=== PATIENT | female | born 1950 | race Caucasian/White ===

== ENCOUNTER 2023-02-15 06:59 | Day surgery (SDC) | payer OTHER ==
[2023-02-15] MEDS ORDERED: Ringers Lactate 1,000 ML IV ONE (07:29)
[2023-02-15] MEDS ORDERED: propofoL 200 MG/20 ML VIAL IV ONE (09:26)
[2023-02-15 10:02] VITALS: O2SAT 100
[2023-02-15 10:04] VITALS: BP 123/58; TEMP 98
--- NOTE | 2023-02-15 17:30 | EKG ---
Test Date: 2023-02-13 Test Time: 09:54:42 Stone Sandblaster: GRANT MEASUREMENT RESULTS: Intervals: Rate: 63 MS: 172 QRSD: 110 QT: 424 QTc: 433 Gravel Switch: P: 21 MS: 172 QRS: 7 T: 31 INTERPRETIVE STATEMENTS: Normal sinus rhythm Normal ECG No previous ECG available for comparison Electronically Signed On 02-15-23 17:23:38 ADULT LIVE IN CAREGIVER by Deion Maxwell
== END 2023-02-15 09:39 | disposition home or self-care (01) ==
LOC: OR 06:59
PROVIDERS: ATTEND Internal Medicine Gastroenterology
PROC: 0DJD8ZZ Inspection of Lower Intestinal Tract, Via Natural or Artificial Opening Endoscopic (ICD-10-PCS; principal; 2023-02-15 08:45)
DX: K92.1 Melena (principal); K64.8 Other hemorrhoids; K64.4 Residual hemorrhoidal skin tags; Q43.8 Other specified congenital malformations of intestine; Z86.010 Personal history of colon polyps
CPT/HCPCS: 93005; 45378; J2704; J7120

== ENCOUNTER 2024-06-25 14:32 | Inpatient (IN) | payer OTHER ==
--- OUTSIDE RECORDS SUMMARY | 2024-06-25 14:35 | XMS REPORT | Clinical Summary ---
Author Name Unknown Organization [facility] [place] Address [address] [place] [address] Care Team Providers Care Production Administrative Assistant Name Role Phone Toi Beltran MD Primary Care Provider Shawn Shetty MD Unavailable [phone] Heena Vidal MD Unavailable [phone] Allergies No known active allergies Medications atorvastatin (LIPITOR) 10 mg tablet Take 10 mg by mouth at bedtime. 04/03/1997 Active fluticasone (FLONASE) 50 mcg/spray nasal spray daily as needed. 04/03/1997 Active verapamil (VERELAN) 240 MG 24 hr capsule Take 240 mg by mouth daily. 04/03/1997 Active Synthroid 88 mcg tablet Take 1 tablet by mouth daily. 05/09/2020 Active Active Problems Problem Noted Date Diagnosed Date Melanoma in situ of back 06/25/2020 Multinodular goiter 06/09/2015 Surgical History Surgery Date Site/Laterality Comments TONSILLECTOMY APPENDECTOMY Medical History Medical History Date Comments Disorder of thyroid gland Multin odular goitre over 10 years Hyperlipidemia Melanoma in situ 1992 UPPER BACK Ventricular arrhythmia VENTRICUL AR TACHYCARDIA , WITH CARDIAC ABLATION 15 YEARS AGO Family History Medical History Relation Name Comments Coronary heart disease (CHD) Brother Hypertension Brother Thyroid cancer Brother Leukemia Daughter Thyroid cancer Daughter Coronary heart disease (CHD) Father Coronary heart disease (CHD) Mother Hypertension Mother Relation Name Status Comments Brother Alive Daughter Alive Father Mother Social History Tobacco Use Types Packs/Day Years Used Date Smoking Tobacco: Never Smokeless Tobacco: Never Alcohol Use Standard Drinks/Week Comments Yes 2 (1 standard drink = 0.6 oz pur e alcohol) Comments Unknown Sex and Gender Information Value Date Recorded Sex Assigned at Not on file 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 Gender Identity Not on file Sexual Orientation Not on file Obstetrics History Plan of Treatment Health Maintenance Due Date Last Done Comments Pneumococcal Vaccine: 50+ Years (1 of 1 - PCV) 002 COVID-19 Vaccine ( - 2023- season) 2023 Influenza Vaccine (#1) 2023 Insurance Care Teams Production Administrative Assistant Relationship Specialty Start Date End Date Toi Beltran MD [address] [place] [address] [phone] [email or web address] PCP - General 06/03/15 Shawn Shetty MD [address] [place] [phone] [email or web address] PCP - External Follow Up A 06/09/15 Heena Vidal MD [address] [place] [address] [phone] [email or web address] Physician Endocrine Surgery 06/09/15
[2024-06-25 17:12] LABS: Absolute Basophils 0.1 K/uL (0-0.5); Absolute Lymphocytes (CBC) 1.4 K/uL (0.7-4.9); Absolute Monocytes 0.6 K/uL (0.1-1.3); Absolute Neutrophil 4.3 K/uL (1.8-8.0); Basophils % 0.9 % (0-1.3); Eosinophils % 0.7 % (0-4.4); Hematocrit 42.7 % (36.0-45.0); Hemoglobin 14.5 g/dL (12.0-15.0); Lymphocytes % 21.9 % (15.3-44.8); MCH 32.5 pg (27.0-35.0); MCHC 33.9 g/dL (32.0-36.0); MCV 95.9 fL (80-100); MPV 8.7 fL (7.6-11.3); Neutrophils % 66.5 % (41.7-73.7); Nucleated Red Blood Cells % 0.1 % (0-0); Platelets 256 thou/uL (152-406); RBC Red Blood Cell Count 4.45 M/uL (3.86-4.86); Red Cell Distribution Width 13.9 % (12.1-15.2)
--- NOTE | 2024-06-25 17:23 | RAD REPORT ---
EXAMINATION: ONE VIEW CHEST XR CLINICAL INDICATION: Female, 73 years old.,CHEST PAIN TECHNIQUE: Frontal chest projection is submitted. Examination is limited by patient positioning and t echnique. COMPARISON: No prior exam. FINDINGS: The lungs are well inflated and clear. No pneumothorax or sizable effusion. The heart is normal in s ize. Mediastinal contours are unremarkable. IMPRESSION: No acute intrathoracic abnormalities.
[2024-06-25 17:28] LABS: Anion Gap 7.5 mEq/L (5.0-15.0); Potassium 3.5 mEq/L (3.5-5.1); Troponin High Sensitivity 4.3 pg/mL (<58.9)
[2024-06-25 17:38] LABS: PTT, Activated Partial Thromb 33.2 SECONDS (27.2-37.4); Protime INR 1.06
--- NOTE | 2024-06-25 18:23 | RAD REPORT ---
EXAMINATION: CTA HEAD CLINICAL INDICATION: Female, 73 years old. dizzines TECHNIQUE: Axial CT images were obtained through the head after intravenous contrast utilizing angiog raphic protocol with 3D post-processing (maximum intensity projection images, volume rendered images and/or shaded surface rendered images). One or more of the following dose reduction technique s were used: Automated exposure control, adjustment of the mA and/or kV according to patient size, and/or iterative reconstruction. Unless otherwise specified, incidental findings do not require dedic ated imaging follow-up. COMPARISON: No prior exam. FINDINGS: ICA: The petrous, cavernous, and supraclinoid segments of the bilateral internal carotid arteries are normal. CARTER: Anterior cerebral arteries are normal bilaterally. The anterior communicating artery is patent. MCA: Middle cerebral arteries are normal bilaterally. PREPARATION PLANT SUPERVISOR: Posterior cerebral arteries are normal bilaterally. Vertebrobasilar: The vertebral arteries are patent. The basilar artery is normal in appearance. 3D images confirm these findings. IMPRESSION: No large vessel occlusion or hemodynamically significant stenosis.
--- NOTE | 2024-06-25 18:24 | RAD REPORT ---
EXAM: CT Head Brain Wo Cont HISTORY: DIZZINESS COMPARISON: None TECHNIQUE: Multiple contiguous axial images were obtained for a CT of the brain without contrast. Sag ittal and coronal reformats were performed. One or more of the following dose reduction techniques were used: Automated exposure control, adjus tment of the mA and kV according to patient size, and iterative reconstruction. Unless otherwise specified, incidental findings do not require dedicated imaging follow-up. FINDINGS: No evidence of hydrocephalus, intracranial hemorrhage, or extra-axial fluid collection. Mild brain atrophy with mild periventricular and deep white matter chronic microvascular ischemic ch anges present. The calvarium is intact. The visualized paranasal sinuses and mastoid air cells are essentially clear . IMPRESSION: No evidence of acute intracranial abnormality.
--- NOTE | 2024-06-25 18:40 | RAD REPORT ---
EXAMINATION: CT Neck Angio CLINICAL INDICATION: Female, [address] [facility] dizziness Bed Name: 7 TECHNIQUE: Axial CT images were obtained from the aortic arch to the skull base after intravenous con trast utilizing angiographic protocol. Multiplanar reformats, as well as 3D post-processing (maximum intensity projection images, volume rendered images and/or shaded surface rendered images) w ere generated and reviewed. One or more of the following dose reduction techniques were used: Automated exposure control, adjustment of the mA and/or kV according to patient size, and/or iterativ e reconstruction. Unless otherwise specified, incidental findings do not require dedicated imaging follow-up. COMPARISON: No prior exam. FINDINGS: AORTA: The imaged aortic arch is normal. Normal three-vessel configuration of the arch. CCA: No artifact The common carotid arteries are patent and normal in caliber. ICA/ECA: Bilateral internal and external carotid arteries are patent. There is no significant interna l carotid artery stenosis. VERTEBRAL: The cervical vertebral arteries are patent to the skull base. Vertebral arteries are codom inant. SOFT TISSUE: No significant neck soft tissue abnormalities. The visualized lung apices are clear. 3D images confirm these findings. IMPRESSION: No significant flow abnormality of the neck vessels is identified. NASCET criteria used to quantify ICA stenosis, with the following grading scheme: Mild 0-49% stenosis Moderate 50-69% stenosis Severe 70-99% stenosis Reference: [place] Symptomatic Carotid Endarterectomy Trial Collaborators; Janine RUBIO, Heather WU, Kathy RB, et al. Beneficial effect of carotid endarterectomy in symptomatic patients with high-grade carotid stenosis. N Engl J Med. 1990Nov 15;325(7):445-53.
--- NOTE | 2024-06-25 18:59 | ER ---
Nurse's Notes [facility] Name: Sameera Mclean Age: 73 yrs Sex: Female : 1950 Arrival Date: 06/25/2024 Time: 14:32 Bed 15 Private MD: Diagnosis: Chest pain, unspecified;Dizziness and giddiness Presentation: 06/25 14:50 Chief complaint: Patient states: she had some episodes of vertigo last night and this me1 morning. Went to see Dr Neely this morning and she sent patient to ER due to EKG results. c/o LUQ pain. Vertigo has resolved. Coronavirus screen: At this time, the client does not indicate any symptoms associated with coronavirus-19. Ebola Screen: No symptoms or risks identified at this time. Initial Sepsis Screen: Does the patient meet any 2 criteria? No. Patient's initial sepsis screen is negative. Does the patient have a suspected source of infection? No. Patient's initial sepsis screen is negative. Risk Assessment: Do you want to hurt yourself or someone else? Patient reports no desire to harm self or others. Onset of symptoms was June 24, 2024. 14:50 Method Of Arrival: Ambulatory me1 14:50 Acuity: YEHUDA 3 me1 Triage Assessment: 15:02 Neuro: Level of Consciousness is awake, alert, obeys commands, Oriented to person, me1 place, time, situation, Appropriate for age. Neuro: Reports dizziness, last night and this am. Resolved. Cardiovascular: Patient's skin is warm and dry. Respiratory: Airway is patent Respiratory effort is even, unlabored, Respiratory pattern is regular, symmetrical. Historical: - Allergies: 14:59 No Known Allergies; me1 - PMHx: 14:59 Coronary atherosclerosis; me1 15:02 ventricular tachycardia; Hypercholesterolemia; retina detachment; me1 - PSHx: 15:02 Tonsillectomy; Appendectomy; oopherectomy; foot surgery; me1 - Immunization history:: Adult Immunizations up to date. - Infectious Disease History:: Denies. - Social history:: Smoking status: Patient denies any tobacco usage or history of. Screenin:27 [facility] ED Fall Risk Assessment (Adult) History of falling in the last 3 months, jb4 including since admission No falls in past 3 months (0 pts) Confusion or Disorientation No (0 pts) Intoxicated or Sedated No (0 pts) Impaired Gait No (0 pts) Mobility Assist Device Used No (0 pt) Altered Elimination No (0 pt) Score/Fall Risk Level 0 - 2 = Low Risk Oriented to surroundings, Maintained a safe environment. Abuse screen: Denies threats or abuse. Nutritional screening: No deficits noted. Tuberculosis screening: No symptoms or risk factors identified. Assessment: 16:45 General: Appears in no apparent distress. comfortable, Behavior is calm, cooperative, jb4 appropriate for age. Pain: Denies pain. Neuro: Level of Consciousness is awake, alert, obeys commands, Oriented to person, place, time, situation. Cardiovascular: Patient's skin is warm and dry. Respiratory: Airway is patent Respiratory effort is even, unlabored, Respiratory pattern is regular, symmetrical. Derm: Skin is intact, Skin is pink, warm \T\ dry. 18:00 Reassessment: Patient appears in no apparent distress at this time. Patient and/or jb4 family updated on plan of care and expected duration. Pain level reassessed. Patient is alert, oriented x 3, equal unlabored respirations, skin warm/dry/pink. 19:00 Reassessment: Patient appears in no apparent distress at this time. Patient and/or jb4 family updated on plan of care and expected duration. Pain level reassessed. Patient is alert, oriented x 3, equal unlabored respirations, skin warm/dry/pink. 20:00 Reassessment: Patient appears in no apparent distress at this time. Patient and/or jb4 family updated on plan of care and expected duration. Pain level reassessed. Patient is alert, oriented x 3, equal unlabored respirations, skin warm/dry/pink. Vital Signs: 14:50 BP 210 / 114; Pulse 77; Resp 20; Temp 98.5; Pulse Ox 99% ; Pain 0/10; me1 18:27 BP 188 / 88; Pulse 55; Resp 16; Pulse Ox 97% on R/A; jb4 19:30 BP 191 / 92; Pulse 61; Resp 16; Pulse Ox 98% on R/A; jb4 21:00 BP 147 / 63; Pulse 70; Resp 16; Pulse Ox 97% on R/A; jb4 22:00 BP 155 / 68; Pulse 71; Resp 20; Pulse Ox 99% on R/A; jb4 14:50 Pain Scale: Adult wv1 ED Course: 14:34 Patient arrived in ED. im 14:40 Jean Nicolas MD is Attending Physician. ec2 14:59 Triage completed. me1 15:02 Arm band placed on Patient placed in waiting room. me1 15:09 EKG done, by ED staff, reviewed by Jean Nicolas MD. me1 15:57 Radiology exam delayed due to lab results not completed at this time. (BUN/Creatinine) jc4 IV insertion attempt and/or patient not having appropriate IV at this time. 16:53 XRAY Chest (1 view) In Process Unspecified. EDMS 16:56 Radiology exam delayed due to lab results not completed at this time. (BUN/Creatinine) nj IV insertion attempt and/or patient not having appropriate IV at this time. 17:07 Ptt, Activated Sent. bc6 17:07 PT-INR Sent. bc6 17:07 Basic Metabolic Panel Sent. bc6 17:07 CBC with Diff Sent. bc6 17:07 Troponin HS Sent. bc6 17:07 Initial lab(s) drawn, by wv, sent to lab. Inserted saline lock: 20 gauge in right bc6 antecubital area, using aseptic technique. Blood collected. Flushed with 10 mL NS. 17:49 CT Head Angio In Process Unspecified. EDMS 17:49 CT Head Brain wo Cont In Process Unspecified. EDMS 17:49 CT Neck Angio In Process Unspecified. EDMS 18:27 Patient has correct armband on for positive identification. Bed in low position. Call jb4 light in reach. Side rails up X 1. Provided Education on: plan of care. 18:27 No provider procedures requiring assistance completed. jb4 18:58 Prince Ordonez MD is Hospitalizing Provider. ec2 19:59 Delmar Ribeiro, RN is Primary Nurse. jb4 06/26 08:01 Primary Nurse role handed off by Delmar Ribeiro, RN bd 08:58 Patient admitted, IV remains in place. ap3 Administered Medications: 06/25 20:41 Drug: hydrALAZINE IVP 10 mg IVP once Route: IVP; Site: right forearm; jb4 21:00 Follow up: Response: No adverse reaction; Blood pressure is lowered rg5 Medication: 18:27 VIS not applicable for this client. jb4 Outcome: 18:58 Decision to Hospitalize by Provider. ec2 06/26 08:58 Admitted to Tele ap3 Condition: good Discharge instructions given to patient, Instructed on the need for admit, 08:58 Patient left the ED. ap3 Signatures: Dispatcher [employer] EDMS Marlee Boss James, SHERMAN RN jb4 Ric Macdonald Amanda, RN RN ap3 Anila Case 6 Gill Cohn Michelle, RN RN me1 Jean Nicolas MD MD ec2 Tim Tabares RN RN rg5 Kwesi Nieto 4
--- NOTE | 2024-06-25 18:59 | EDPHYS ---
Physician Documentation [facility] Name: Sameera Mclean Age: 73 yrs Sex: Female : 1950 Arrival Date: 06/25/2024 Time: 14:32 Bed 15 Private MD: ED Physician Jean Nicolas HPI: 06/25 15:05 This 73 yrs old Female presents to ER via Ambulatory with complaints of ec2 Abnormal Lab Results - EKG. 15:05 Patient arrives today for evaluation of dizziness as well as chest pain. Patient ec2 reports intermittent left-sided chest pain ongoing for unclear timeframe. Reports that she is also noted some dizziness which she describes as vertigo with a concerning sensation which she no longer actively has. Reports a history of CAD, hyperlipidemia, hypertension.. Historical: - Allergies: 14:59 No Known Allergies; me1 - PMHx: 14:59 Coronary atherosclerosis; me1 15:02 ventricular tachycardia; Hypercholesterolemia; retina detachment; me1 - PSHx: 15:02 Tonsillectomy; Appendectomy; oopherectomy; foot surgery; me1 - Immunization history:: Adult Immunizations up to date. - Infectious Disease History:: Denies. - Social history:: Smoking status: Patient denies any tobacco usage or history of. ROS: 15:05 Constitutional: as per hpi ec2 Exam: 15:05 Constitutional: GEN: NAD Head: atraumatic Eyes: EOMI Ears: External ears are ec2 normal. CV: regular rate LUNGS: no respiratory distress ABD: non-distended, soft, nontender, not guarding, not rigid SKIN: no evidence of rashes MSK: no evidence of trauma. Neuro: Cranial nerves II through XII intact, strength intact all 4 extremities, normal [id number]. Vital Signs: 14:50 BP 210 / 114; Pulse 77; Resp 20; Temp 98.5; Pulse Ox 99% ; Pain 0/10; me1 18:27 BP 188 / 88; Pulse 55; Resp 16; Pulse Ox 97% on R/A; jb4 19:30 BP 191 / 92; Pulse 61; Resp 16; Pulse Ox 98% on R/A; jb4 21:00 BP 147 / 63; Pulse 70; Resp 16; Pulse Ox 97% on R/A; jb4 22:00 BP 155 / 68; Pulse 71; Resp 20; Pulse Ox 99% on R/A; jb4 14:50 Pain Scale: Adult me1 MDM: 14:47 Medical Screening Exam initiated ec2 15:06 Data reviewed: vital signs, nurses notes. ED course: Patient arrives today for ec2 evaluation of dizziness and left-sided chest pain with which she has no active symptoms. Will obtain a cardiac workup as well as a CT scan of the head and CT angio head and neck. DDx include processes such as ACS, stroke, TIA. 15:12 ED course: EKG independently reviewed and interpreted by me, shows normal sinus rhythm, ec2 rate of 63, no acute ST segment elevations, intervals are nonactionable.. 17:57 ED course: Metabolic profile reassuring, CBC reassuring, troponin within normal ranges. ec2 Chest x-ray shows no acute intrathoracic process. Pending CT imaging.. 18:58 ED course: Patient with reassuring cardiac workup, CT scan of the head, CT angio of the ec2 head and neck with no acute process identified. Will admit for further stroke workup, discussed the case with hospitalist will admit primarily.. 06/25 14:41 Order name: Basic Metabolic Panel; Complete Time: 17:57 ec2 06/25 14:41 Order name: CBC with Diff; Complete Time: 17:57 ec2 06/25 14:41 Order name: Troponin HS; Complete Time: 17:57 ec2 06/25 14:41 Order name: PT-INR; Complete Time: 17:57 ec2 06/25 14:41 Order name: Ptt, Activated; Complete Time: 17:57 ec2 06/25 19:15 Order name: UAM ec2 06/25 19:34 Order name: Urinalysis w/ reflexes EDSC 06/25 14:41 Order name: XRAY Chest (1 view); Complete Time: 17:57 ec2 06/25 15:03 Order name: CT Head Angio; Complete Time: 18:36 ec2 06/25 15:03 Order name: CT Head Brain wo Cont; Complete Time: 18:36 ec2 06/25 15:03 Order name: CT Neck Angio; Complete Time: 18:47 ec2 06/25 19:39 Order name: Echo with Doppler EDSC 06/25 19:39 Order name: Brain Wo Cont EDSC 06/25 14:41 Order name: EKG; Complete Time: 14:42 ec2 06/25 19:34 Order name: Physical Therapy Consult [facility] 06/25 14:41 Order name: Cardiac monitoring; Complete Time: 17:55 ec2 06/25 14:41 Order name: EKG - Nurse/Tech; Complete Time: 15:09 ec2 06/25 14:41 Order name: IV Saline Lock; Complete Time: 17:07 ec2 06/25 14:41 Order name: Labs collected and sent; Complete Time: 17:07 ec2 06/25 14:41 Order name: O2 Per Protocol; Complete Time: 17:55 ec2 06/25 14:41 Order name: O2 Sat Monitoring; Complete Time: 17:55 ec2 Administered Medications: 20:41 Drug: hydrALAZINE IVP 10 mg IVP once Route: IVP; Site: right forearm; jb4 21:00 Follow up: Response: No adverse reaction; Blood pressure is lowered rg5 Disposition Summary: 06/25/24 18:58 Hospitalization Ordered Notes: Hospitalization Status: Inpatient Admission ec2 Provider: Prince José Luis ec2 Condition: Stable ec2 Problem: new ec2 Symptoms: are unchanged ec2 Bed/Room Type: Standard ec2 Location: Telemetry/MedSurg (observation)(06/26/24 06:40) Room Assignment: 428(06/26/24 06:40) Diagnosis - Chest pain, unspecified ec2 - Dizziness and giddiness ec2 Forms: - Medication Reconciliation Form ec2 - SBAR form ec2 - Leadership Thank You Letter ec2 Signatures: Dispatcher [employer] EDJolly Le RN RN kl Delmar Ribeiro RN RN jb4 Jaclyn Carmona RN RN me1 Jean Nicolas MD MD ec2 Tim Tabares RN rg5 Corrections: (The following items were deleted from the chart) 14:42 14:41 BASIC METABOLIC PANEL+C.LAB.BRZ ordered. EDMS EDMS 14:42 14:41 CBC+H.LAB.BRZ ordered. EDMS EDMS 14:42 14:41 Troponin High Sensitivity+C.LAB.BRZ ordered. EDMS EDMS 14:42 14:41 PROTIME (+INR)+COAG.LAB.BRZ ordered. EDMS EDMS 14:42 14:41 PTT, ACTIVATED+COAG.LAB.BRZ ordered. EDMS EDMS 15:04 15:04 Head Brain Wo Cont+CT.RAD.BRZ ordered. EDMS EDMS 15:04 15:04 Neck Angio+CT.RAD.BRZ ordered. EDMS EDMS 23:46 18:58 Telemetry/MedSurg (Inpatient) [facility] 23:46 18:58 [facility] 06/26 06:40 06/25 23:46 [facility] ER [facility] 06/26 06:40 06/25 23:46 [facility]
--- NOTE | 2024-06-25 19:37 | P.HP ---
Certification for Inpatient Patient admitted to: Observation With expected LOS: <2 Midnights Practitioner: I am a practitioner with admitting privileges, knowledge of patient current condition, hospital course, and medical plan of care. Services: Services provided to patient in accordance with Admission requirements found in Title 42 Section 412.3 of the Code of Federal Regulations Patient History Date of Service: 06/25/24 Reason for admission: Vertigo History of Present Illness: Patient is a 73-year-old female with a past medical history of ventricular tachycardia, hypothyroidism and hyperlipidemia. She presented to the ER accompanied by with complaints of acute vertigo. Patient states that she woke up in the middle of the night to go to the bathroom and after returning in bed and lying down, she started experiencing vertiginous symptoms. She is describing them as the room spinning around. The morning of the following day, as she was trying to do some exercise, she got up and went into the exercise floor and experienced the same symptoms as described above. Associated symptoms include extreme nausea. Patient denies any recent flulike illness, vomiting, fever or cough. CT head, CTA head and neck were unremarkable in the ER. She is being admitted for brain MRI. During evaluation the ER, physical exam was benign and nonfocal. Allergies No Known Allergies Allergy (Verified 02/13/23 08:42) Home Medications: Atorvastatin Calcium [Lipitor] 20 mg PO BEDTIME 02/13/23 Bromfenac Sodium 1.7 ml LEFT EYE DAILY 02/13/23 Levothyroxine [Synthroid] 88 mcg PO [id number] 02/13/23 Verapamil HCl [Verapamil ER] 240 mg PO DAILY 02/13/23 Physical Examination - Physical Exam General: Alert, In no apparent distress HEENT: Atraumatic, Normocephalic Cardiovascular: No edema, Normal pulses, Regular rate/rhythm, Normal S1 S2 Neurological: Normal speech - Studies Laboratory Data (last 24 hrs) 06/25/24 06/25/24 06/25/24 17:05 17:05 17:05 WBC 6.40 Hgb 14.5 Hct 42.7 Plt Count 256 PT 12.0 INR 1.06 APTT 33.2 Sodium 139 Potassium 3.5 BUN 11 Creatinine 0.63 Glucose 111 H Assessment and Plan - Problems (Diagnosis) (1) Vertigo Current Visit: Yes Status: Acute (2) Ventricular tachycardia Current Visit: Yes Status: Acute (3) Hypothyroidism Current Visit: Yes Status: Acute (4) Hyperlipidemia Current Visit: Yes Status: Acute - Plan Assessment Patient is a 73-year-old female who is being admitted for CVA workup after she presented with dizziness manifested by vertigo. Workup in the ER included a CT head, CTA head and neck, all of which returned unremarkable. Vertigo Ventricular tachycardia Hypothyroidism Hyperlipidemia Plan: Will admit under observation with telemetry Will obtain the brain MRI and 2D echo Physical therapy in the morning Check for thyroid function test Monitor for arrhythmia Resume rest of home medication upon reconciliation: She is supposed to be on verapamil, levothyroxine and atorvastatin - Advance Directives Does patient have a Living Will: No Does patient have a Durable POA for Healthcare: No
[2024-06-25 19:59] LABS: Specific Gravity 1.005 (1.005-1.030); Sqamous Epithelial <5 /HPF (None Seen); Urine Bacteria None Seen /HPF (<20); Urine Bilirubin NEGATIVE (Negative); Urine Blood Negative (Negative); Urine Clarity Clear (Clear); Urine Color Colorless (Yellow); Urine Crystals Unidentified Few /HPF (None Seen); Urine Culture Reflex Order NOT NEEDED; Urine Glucose NEGATIVE (Negative); Urine Ketones NEGATIVE (Negative); Urine Micro Reflex YN NO BILL MICROSCOPIC; Urine Nitrite NEGATIVE (Negative); Urine Protein NEGATIVE (Negative); Urine RBC <5 /HPF (None Seen); Urine Urobilinogen Normal (Normal); Urine WBC <5 /HPF (<5); Urine pH 6.5 (5.0-7.0)
[2024-06-25] MEDS ORDERED: HYDRALAZINE HCL 20 MG/ML VIAL ONE (20:39)
[2024-06-25] MEDS ORDERED: NA CHLORIDE 0.9% 1,000 ML ONE (22:23)
[2024-06-25] MEDS: NA CHLORIDE 0.9% 1,000 ML IV SCH (22:30)
[2024-06-25 22:46] VITALS: BMI 29.9
[2024-06-26] MEDS ORDERED: ACETAMINOPHEN 325 MG TABLET ONE (03:03)
[2024-06-26] MEDS: ACETAMINOPHEN 325 MG TABLET PO PRN (03:07)
[2024-06-26] MEDS: PNEUMOCOCCAL VACCINE 0.5 ML IMVAC ONE (08:00)
[2024-06-26] MEDS ORDERED: ONDANSETRON 4 MG/2 ML VIAL ONE (08:44)
[2024-06-26] MEDS: ONDANSETRON 4 MG/2 ML VIAL IV PRN (08:48)
[2024-06-26] MEDS: NA CHLORIDE 0.9% 1,000 ML IV SCH (10:04)
[2024-06-26] MEDS: ENOXAPARIN 40 MG/0.4 ML SQ SCH (10:04)
[2024-06-26] MEDS: OXYCODONE HCL 5 MG TAB PO PRN (11:00)
[2024-06-26] MEDS: HYDRALAZINE HCL 20 MG/ML VIAL IV PRN (11:14)
--- NOTE | 2024-06-26 15:17 | P.PN ---
Subjective Date of Service: 06/26/24 Chief Complaint: Vertigo Subjective: No chest pain or shortness of breath. Complaining of on and off nausea and vertigo. No abdominal pain. No obvious bleeding. Looks comfortable in the bed. Objective: General appearance: Alert and comfortable CVS: Normal S1 and S2 Lungs: Clear to auscultation bilaterally Abdomen: Soft, bowel sounds present, no tenderness Extremities: No lower extremity edema Physical Examination - Vital Signs Temperature: 97.7 F Blood Pressure: 192/82 Pulse: 61 Respirations: 20 Pulse Ox (%): 98 - Studies Laboratory Data (last 24 hrs) 06/25/24 06/25/24 06/25/24 17:05 17:05 17:05 WBC 6.40 Hgb 14.5 Hct 42.7 Plt Count 256 PT 12.0 INR 1.06 APTT 33.2 Sodium 139 Potassium 3.5 BUN 11 Creatinine 0.63 Glucose 111 H Assessment And Plan - Plan Patient is a 73-year-old female who is being admitted for CVA workup after she presented with dizziness manifested by vertigo. Workup in the ER included a CT head, CTA head and neck, all of which returned unremarkable. 1. Vertigo: CT head and CTA head and neck negative, MRI pending, neurology consult requested. 2. Ventricular tachycardia: Echo pending, cardiology consult requested. 3. Hypothyroidism: Resume home levothyroxine. 4. Hyperlipidemia: Continue statin. 5. History of cardiac arrhythmia: On verapamil, resume soon. Discussed with patient and family at bedside, answered all questions.
--- NOTE | 2024-06-26 19:27 | RAD REPORT ---
EXAMINATION: MRI BRAIN WITHOUT CONTRAST CLINICAL INDICATION: Headache TECHNIQUE: Multiplanar multisequence MR images of the brain were obtained without intravenous contras t. Unless otherwise specified, incidental findings do not require dedicated imaging follow-up. COMPARISON: June 25, 2024 FINDINGS: Mild to moderate abnormal signal within periventricular, deep and subcortical white matter probably i schemic changes secondary to small vessel disease. Diffusion weighted/ADC mapping does not demonstrate evidence of an acute infarction. Ventricles are normal caliber. No extra-axial fluid collection. No fluid within the sinuses/mastoid seen. Mucous retention cyst right maxillary sinus. IMPRESSION: No acute intracranial abnormalities displayed
[2024-06-26] MEDS: ATORVASTATIN 40 MG TAB PO SCH (20:01)
[2024-06-27] MEDS: LEVOTHYROXINE SOD 0.088 MG TAB PO SCH (05:38)
[2024-06-27 07:22] LABS: Absolute Lymphocytes (CBC) 1.7 K/uL (0.7-4.9); Absolute Monocytes 1.3 K/uL (0.1-1.3); Absolute Neutrophil 7.7 K/uL (1.8-8.0); Basophils % 0.4 % (0-1.3); Eosinophils % 0.1 % (0-4.4); Hematocrit 39.5 % (36.0-45.0); Hemoglobin 13.8 g/dL (12.0-15.0); Lymphocytes % 15.3 % (15.3-44.8); MCH 32.6 pg (27.0-35.0); MCHC 34.9 g/dL (32.0-36.0); MCV 93.6 fL (80-100); MPV 9.3 fL (7.6-11.3); Monocytes % 12.4 % (3.3-12.3); Neutrophils % 71.8 % (41.7-73.7); Platelets 251 thou/uL (152-406); RBC Red Blood Cell Count 4.23 M/uL (3.86-4.86); Red Cell Distribution Width 13.8 % (12.1-15.2)
[2024-06-27 07:39] LABS: Anion Gap 9.3 mEq/L (5.0-15.0); Magnesium 2.2 mg/dL (1.6-2.4); Phosphorus 2.9 mg/dL (2.5-4.9); Potassium 3.3 mEq/L (3.5-5.1)
[2024-06-27 08:26] VITALS: BP 150/76; TEMP 98.1
--- NOTE | 2024-06-27 08:34 | ECHO ---
HEIGHT: 5 ft 5 in WEIGHT: 180 lb 0 oz DATE OF STUDY: 06/26/[address]: Prince Madeline Ordonez MD 2-DIMENSIONAL: YES M.MODE: YES DOPPLER: YES COLOR FLOW: YES TDS: PORTABLE: YES DEFINITY: BUBBLE STUDY: DIAGNOSIS: VERTIGO CARDIAC HISTORY: CATHERIZATION: NO SURGERY: NO PROSTHETIC VALVE: NO PACEMAKER: NO MEASUREMENTS (cm) DIASTOLIC (NORMALS) SYSTOLIC (NORMALS) IVSd 1.0 (0.6-1.2) LA Diam 2.9 (1.9-4.0) LVEF 60-65% LVIDd 4.6 (3.5-5.7) LVIDs 2.9 (2.0-3.5) %FS 37% LVPWd 1.1 (0.6-1.2) Ao Diam 2.8 (2.0-3.7) 2 DIMENSIONAL ASSESSMENT: RIGHT ATRIUM: NORMAL LEFT ATRIUM: NORMAL RIGHT VENTRICLE: NORMAL LEFT VENTRICLE: NORMAL TRICUSPID VALVE: NORMAL MITRAL VALVE: NORMAL PULMONIC VALVE: NORMAL AORTIC VALVE: NORMAL PERICARDIAL EFFUSION: NONE AORTIC ROOT: NORMAL LEFT VENTRICULAR WALL MOTION: NORMAL DOPPLER/COLOR FLOW: NORMAL COMMENTS: 1. NORMAL LEFT VENTRICULAR SYSTOLIC FUNCTION, EJECTION FRACTION 60-65%, NORMAL WALL MOTION 2. NORMAL DIASTOLIC FUNCTION TECHNOLOGIST: HEMA MCMANUS
--- NOTE | 2024-06-27 08:42 | EKG ---
Test Date: 2024-06-25 Test Time: 15:08:07 Doll Surgeon: MEASUREMENT RESULTS: Intervals: Rate: 63 FL: 152 QRSD: 84 QT: 402 QTc: 411 [place]: P: 22 FL: 152 QRS: 7 T: 53 INTERPRETIVE STATEMENTS: Normal sinus rhythm Normal ECG Compared to ECG 02/13/2023 09:54:42 No significant changes Electronically Signed On 06-27-24 08:37:26 CDT by Santhosh Bearden
[2024-06-27] MEDS: VERAPAMIL SR 240 MG TABLET PO SCH (09:25)
[2024-06-27] MEDS: POTASSIUM CL SA 10 MEQ TAB PO ONE (09:25)
[2024-06-27 09:56] VITALS: O2SAT 95
--- NOTE | 2024-06-27 10:42 | P.DS ---
Admission Date: 06/27/24 Discharge Date: 06/27/24 Disposition: DC HOME/HOME HEALTH CARE Discharge Condition: GOOD Reason for Admission: Vertigo Hospital Course: Patient is a 73-year-old female who is being admitted for CVA workup after she presented with dizziness manifested by vertigo. Workup in the ER included a CT head, CTA head and neck, all of which returned unremarkable. 1. Vertigo: resolved. -CT head and CTA head and neck negative - MRI neg 2. Ventricular tachycardia: Echo normal, cardiology consult requested, rec verapamil and o/p f/u 3. Hypothyroidism: home levothyroxine. 4. Hyperlipidemia: Continue statin. 5. History of cardiac arrhythmia: On verapamil 73-year-old patient admitted with vertigo, she was admitted for stroke rule out, MRI negative for stroke, physical therapy did work with her, her vertigo symptoms resolved, cardiology was consulted due to history of arrythmia, she had an echocardiogram that was pretty normal, they recommended to continue verapamil and follow-up as an outpatient, when I see the patient today she is doing well without any acute problems, no further vertigo, she feels ready to go home, otherwise no other acute issues going on so I am planning to discharge her to go home and follow-up with PCP and cardiology. Subjective: No chest pain or shortness of breath. No nausea or vomiting. No abdominal pain. No obvious bleeding. Looks comfortable in the bed. No vertigo. Objective: General appearance: Alert and comfortable CVS: Normal S1 and S2 Lungs: Clear to auscultation bilaterally Abdomen: Soft, bowel sounds present, no tenderness Extremities: No lower extremity edema [employer]PER[employer]OR [employer] COMPLAINT SERVICE: Moves all 4 extremities, no facial weakness. Vital Signs/Physical Exam: Temp Pulse Resp BP Pulse Ox 98.1 F 71 20 150/76 H 95 06/27/24 08:00 06/27/24 09:25 06/27/24 08:00 06/27/24 09:25 06/27/24 08:00 Laboratory Data at Discharge: WBC 10.80 thou/uL (4.3-10.9) 06/27/24 06:52 Hgb 13.8 g/dL (12.0-15.0) 06/27/24 06:52 Hct 39.5 % (36.0-45.0) 06/27/24 06:52 Plt Count 251 thou/uL (152-406) 06/27/24 06:52 PT 12.0 SECONDS (10-13.0) 06/25/24 17:05 INR 1.06 06/25/24 17:05 APTT 33.2 SECONDS (27.2-37.4) 06/25/24 17:05 Sodium 139 mEq/L (136-145) 06/27/24 06:52 Potassium 3.3 mEq/L (3.5-5.1) L 06/27/24 06:52 BUN 9 mg/dL (7-18) 06/27/24 06:52 Creatinine 0.71 mg/dL (0.55-1.02) 06/27/24 06:52 Glucose 102 mg/dL (74-106) 06/27/24 06:52 Phosphorus 2.9 mg/dL (2.5-4.9) 06/27/24 06:52 Magnesium 2.2 mg/dL (1.6-2.4) 06/27/24 06:52 Home Medications: Atorvastatin Calcium [Lipitor*] 20 mg PO DAILY 02/13/23 Levothyroxine [Synthroid*] 88 mcg PO [id number] 02/13/23 Verapamil HCl [Verapamil ER] 240 mg PO DAILY 02/13/23 Fluticasone [Flonase 50MCG Nasal [place]*] 1 sprays NS DAILY 06/26/24 Diet: Low sodium Activity: Ad nicolas Followup: Allyson Neely DO [Primary Care Provider] - 1 Week (f/u in 1 week with CBC and CMP) Santhosh Bearden MD [ACTIVE - CAN ADMIT] - 1-2 Weeks (f/u with cardiology in 1-2 weeks)
--- NOTE | 2024-06-27 11:46 | P.CNS ---
Date of Consult: 06/27/24 Chief Complaint: Vertigo History of Present Illness: Patient with PMH of VT s/p ablation with Dr. Sandoval, presented with dizzy spells, vertigo, denies chest pain, no palpitations, no syncope, no breathing problems. Allergies No Known Allergies Allergy (Verified 02/13/23 08:42) Home medications list reviewed: Yes Home Medications: Atorvastatin Calcium [Lipitor*] 20 mg PO DAILY 02/13/23 Levothyroxine [Synthroid*] 88 mcg PO [id number] 02/13/23 Verapamil HCl [Verapamil ER] 240 mg PO DAILY 02/13/23 Fluticasone [Flonase 50MCG Nasal [place]*] 1 sprays NS DAILY 06/26/24 - Past Medical/Surgical History -: Coronary atherosclerosis -: V Tach -: hypercholesterolemia -: Retina Detachment -: Tonsillectomy -: appendectomy -: oopherectomy -: foot surgery - Social History Place of Residence: Home Review of Systems 10-point ROS is otherwise unremarkable Physical Examination Temp Pulse Resp BP Pulse Ox 98.1 F 71 20 150/76 H 95 06/27/24 08:00 06/27/24 09:25 06/27/24 08:00 06/27/24 09:25 06/27/24 08:00 General: Alert, In no apparent distress HEENT: Atraumatic, PERRLA, Mucous membr. moist/pink, EOMI, Sclerae nonicteric Neck: Supple, 2+ carotid pulse no bruit, No LAD, Without JVD or thyroid abnormality Respiratory: Clear to auscultation bilaterally, Normal air movement Cardiovascular: Regular rate/rhythm, Normal S1 S2 Gastrointestinal: Normal bowel sounds, No tenderness Musculoskeletal: No tenderness Integumentary: No rashes Neurological: Normal gait, Normal speech, Normal tone, Normal affect Lymphatics: No axilla or inguinal lymphadenopathy Laboratory Data (last 24 hrs) 06/27/24 06/27/24 06:52 06:52 WBC 10.80 Hgb 13.8 Hct 39.5 Plt Count 251 Sodium 139 Potassium 3.3 L BUN 9 Creatinine 0.71 Glucose 102 Phosphorus 2.9 Magnesium 2.2 - Problems (1) Ventricular tachycardia Current Visit: Yes Status: Acute Plan: Patient already had history ablation, she follows up with cardiology once a year with stress test and echo EKG shows normal SINUS RHYTHM Continue Diltazem No further inpatient cardiac work up needed.
== END 2024-06-27 12:16 | disposition home or self-care (01) | DRG 149 ==
LOC: ER 14:32 → ERHOLD 19:31 → 4TH 06-26 07:37 → OBSVTOIN 06-27 08:18
PROVIDERS: ADMIT Internal Medicine; ATTEND Hospitalist
DX: R42 Dizziness and giddiness (principal); I47.20 Ventricular tachycardia, unspecified; I10 Essential (primary) hypertension; E03.9 Hypothyroidism, unspecified; E78.00 Pure hypercholesterolemia, unspecified; I25.10 Atherosclerotic heart disease of native coronary artery without angina pectoris; Z90.49 Acquired absence of other specified parts of digestive tract; Z79.890 Hormone replacement therapy; Z79.899 Other long term (current) drug therapy
CPT/HCPCS: 36415; 70450; 70496; 70498; 70551; 71045; 80048; 81001; 83735; 84100; 84484; 85025; 85610; 85730; 93005; 93306; 96374; 97112; 97161; 99285; G0378; J0360; J1650; J2405; J7030; Q9967